=== PATIENT | male | born 1975 | race Caucasian/White ===

== ENCOUNTER 2021-08-05 14:14 | Emergency (ER) | payer OTHER, SELFPAY ==
[2021-08-05 14:31] VITALS: BP 122/96; PULSE 87; RESP 18; TEMP 37; O2SAT 99
--- NOTE | 2021-08-05 15:30 | ED.GENADULT ---
HPI - General Adult General Chief complaint: Unspecified Stated complaint: out of medication Time Seen by Provider: 08/05/21 15:11 Source: patient and RN notes reviewed Mode of arrival: ambulatory Limitations: no limitations History of Present Illness HPI narrative: Patient presents today requesting a refill of his Xanax. Patient states he has been on Xanax for approximately 17 years. He has recently had 2 doctors retire and was seen by Aby Delcid NP on 07/01/2021. They had agreed to start decreasing patient's Xanax and start him on Effexor. Patient states that this was Aby's idea. Prior to this, patient had a 1 month refill from a psychiatrist. Because he did not agree with it, and wanted to find a provider that would keep him on his normal dosage of 1 mg twice a day, he made an appointment with another [facility], Cathy Ortiz in [place]. He had one an appointment there on 07/22/2021. He got 1 refill on 07/22/2021. During a subsequent check, patient tested negative for benzodiazepines in his system and she would not give him another refill. Patient states this is because he was unable to sleep in the previous nights and had been taking the medication 3 times a day instead of twice a day as prescribed. Patient states that when he stops taking the Xanax he gets very shaky. He has no interest in stopping the medication altogether. He has no interest in changing his anxiety medication to something that is not a benzodiazepine. He has been out of his Xanax since yesterday. complaint: Medication refill Related Data Home Medications Medication Instructions Recorded Confirmed alprazolam 1 mg PO BID 08/05/21 08/05/21 Allergies Allergy/AdvReac Type Severity Reaction Status Date / Time No Known Allergies Allergy Verified 08/05/21 15:00 Review of Systems Review of Systems: CONSTITUTIONAL: Denies body aches, fever, chills, or sweats. EYES: Denies visual changes, redness, or discharge. ENT: Denies rhinorrhea, congestion, sore throat, or otalgia. CARDIOVASCULAR: Denies chest pain, palpitations, or edema. RESPIRATORY: Denies cough or dyspnea. GASTROINTESTINAL: Denies abdominal pain, nausea, vomiting, or diarrhea. GENITOURINARY: Denies dysuria or hematuria. SKIN: Denies rash, itching, or wounds. MUSCULOSKELETAL: Denies back pain, joint pain, or myalgia. NEUROLOGIC: Denies headache, numbness, tingling, or weakness. PSYCH: Denies depression or anxiety. PMFSH Past Medical History Medical History ADHD Anxiety Drug addiction Encounter to establish care PTSD (post-traumatic stress disorder) Tobacco abuse Family History Family History Mother Family history of lung cancer Father No problems noted. Other RSV infection Social History Social History Smoking packs per day: 0.5 Smoking cigarettes per day: 10.0 Smoking status: Current every day smoker Tobacco type: cigarettes Alcohol intake: former Substance use: former Substance use type: marijuana Gender identity (if verbalized by the patient): Male Exam Narrative: GENERAL: Chronically ill-appearing, well-nourished, and in no acute distress. HEAD: Normocephalic, atraumatic. EYES: EOMI. No redness or drainage. Conjunctivae normal. ENT: Mucous membranes pink and moist. NECK: Normal AROM. CHEST: No respiratory distress. EXTREMITIES: Normal range of motion. No edema. SKIN: Warm, dry, no rash. Capillary refill normal. Normal skin turgor. NEURO: No focal deficits. Alert and oriented x3. Gait steady. PSYCH: No signs of depression. + Anxious Course Course Emergency Course: Discussed patient and situation with my collaborating physician, Dr. Lyons. She agrees with plan to not refill patient's requested medication, Xanax. Discussed this with the patien
== END 2021-08-05 15:41 | disposition home or self-care (01) ==
PROVIDERS: Emergency Provider Nurse Practitioner
DX: F41.9 Anxiety disorder, unspecified (principal); F17.210 Nicotine dependence, cigarettes, uncomplicated
CPT/HCPCS: 99211; G0463